=== PATIENT | male | born 1975 ===

== ENCOUNTER 2022-01-20 06:45 | Day surgery (SDC) | payer OTHER ==
[~2022-01-20 06:45] MED LIST: AMOXI PO; SINGULAIR10 MG PO; VASOTEC10 MG PO
[2022-01-20] MEDS ORDERED: COLACE100 MG PO (11:10)
[2022-01-20] MEDS ORDERED: ULTRACET PO (11:10)
== END 2022-01-20 14:55 | disposition home or self-care (01) ==
LOC: CIR.AMB 06:45
PROVIDERS: ATTEND Surgery
DX: K60.3 Anal fistula (principal); Z20.822 Contact with and (suspected) exposure to COVID-19; K62.89 Other specified diseases of anus and rectum; Z80.0 Family history of malignant neoplasm of digestive organs; Z88.6 Allergy status to analgesic agent; I10 Essential (primary) hypertension; J45.909 Unspecified asthma, uncomplicated; K76.0 Fatty (change of) liver, not elsewhere classified; E66.9 Obesity, unspecified

== ENCOUNTER 2022-04-07 07:02 | Day surgery (SDC) | payer OTHER ==
[~2022-04-07] VITALS: Ht 175.3 cm; Wt 147.0 kg
[~2022-04-07 07:02] MED LIST changes: +COLACE100 MG PO; +ULTRACET PO
[2022-04-07] MEDS ORDERED: COLACE100 MG PO (14:30)
[2022-04-07] MEDS ORDERED: ULTRACET PO (14:30)
== END 2022-04-07 18:10 | disposition home or self-care (01) ==
LOC: CIR.AMB 07:02 → ADM 07:45 → CIR.AMB 07:45
PROVIDERS: ATTEND Surgery
DX: K60.3 Anal fistula (principal); K62.89 Other specified diseases of anus and rectum; Z20.822 Contact with and (suspected) exposure to COVID-19; Z88.0 Allergy status to penicillin